=== PATIENT | female | born 1940 | race Two or more races ===

== ENCOUNTER 2024-05-03 18:11 | Emergency (ER) | payer OTHER ==
[~2024-05-03] VITALS: Ht 160 cm; Wt 59.0 kg
[2024-05-03] MEDS ORDERED: COZAAR25 MG (18:23)
[2024-05-03] MEDS ORDERED: METFORMIN HCL500 MG (18:23)
[2024-05-03] MEDS ORDERED: FAMOTIDINE/PF 20 MG in 0.9 % SODIUM CHLORIDE 8 ML IV PUSH STA (18:24)
[2024-05-03] MEDS ORDERED: ONDANSETRON HCL 2 MG/ML VIAL IV ONE (18:30)
[2024-05-03] MEDS ORDERED: 0.9 % SODIUM CHLORIDE 1,000 ML IV SCH (18:30)
[2024-05-03] MEDS ORDERED: ENALAPRILAT DIHYDRATE 1.25 MG/ML VIAL IV ONE ×2 (18:30→19:18)
[2024-05-03] MEDS ORDERED: MECLIZINE HCL 25 MG TABLET PO ONE ×2 (18:45→19:18)
[2024-05-03] MEDS ORDERED: ONDANSETRON HCL 2 MG/ML VIAL ONE (19:18)
[2024-05-03] MEDS ORDERED: FAMOTIDINE/PF 20 MG/2 ML VIAL ONE (19:18)
[2024-05-03 20:12] LABS: HEMATOCRIT 42.3 % (36.0-45.00); MEAN CELL VOLUME 84.5 fL (80.00-100.00); MEAN CORPUSCULAR HEMOGLOBIN 27.9 pg (27.00-32.0); PLATELET COUNT 348 K/uL (150-450); RED CELL DISTRIBUTION WIDTH 14.9 % (11.5-14.5)
[2024-05-03 20:46] LABS: ALBUMIN 4.1 gm/dL (3.4-5.0); BILIRUBIN TOTAL 0.46 mg/dL (0.3-1.2); BILIRUBIN,CONJUGATED 0.13 mg/dL (0.0-0.2); BILIRUBIN,UNCONJUGATED 0.33 mg/dL (0.0-0.6); CALCIUM 9.3 mg/dL (8.5-10.1); CREATININE SERUM 0.72 mg/dL (0.55-1.02); GFR 76.98; GLOBULINA 3.8 G/DL (2.4-3.5); POTASSIUM 3.64 mEq/L (3.5-5.1); TOTAL PROTEIN 7.9 gm/dL (6.4-8.2)
[2024-05-03] MEDS ORDERED: MANNITOL 0.2 GM/ML (250ML) PIGGYBAG IV ONE (22:30)
== END 2024-05-04 03:14 | disposition designated cancer center or children's hospital (05) ==
LOC: ER 18:11
PROVIDERS: General Practice
DX: R42 Dizziness and giddiness (principal); R11.2 Nausea with vomiting, unspecified; I61.9 Nontraumatic intracerebral hemorrhage, unspecified; R11.10 Vomiting, unspecified; Z20.822 Contact with and (suspected) exposure to COVID-19; I10 Essential (primary) hypertension; E11.9 Type 2 diabetes mellitus without complications; Z79.84 Long term (current) use of oral hypoglycemic drugs
CPT/HCPCS: 36415; 51702; 70450; 93041; 96365; 96366; 99285; J2405; J3490 ×3; J7030

== ENCOUNTER 2024-07-25 17:11 | Inpatient (IN) | payer OTHER ==
[~2024-07-25] VITALS: Ht 157.5 cm; Wt 54.4 kg
[~2024-07-25 17:11] MED LIST: COZAAR25 MG PO; METFORMIN HCL500 MG PO
[2024-07-25] MEDS ORDERED: TRAZODONE HCL150 MG PO (17:40)
[2024-07-25] MEDS ORDERED: SINVALTA PO (17:40)
[2024-07-25] MEDS ORDERED: TOPROL XL50 M1 PO (17:40)
[2024-07-25] MEDS ORDERED: DULOXETINE HCL40 MG PO (17:41)
[2024-07-25] MEDS ORDERED: 0.9 % SODIUM CHLORIDE 1,000 ML IV SCH (18:45)
[2024-07-25] MEDS ORDERED: FAMOTIDINE/PF 20 MG in 0.9 % SODIUM CHLORIDE 8 ML IV PUSH STA (18:45)
[2024-07-25] MEDS ORDERED: ONDANSETRON HCL 2 MG/ML VIAL IV ONE (18:45)
[2024-07-25] MEDS ORDERED: ONDANSETRON HCL 2 MG/ML VIAL ONE (18:54)
[2024-07-25] MEDS ORDERED: FAMOTIDINE/PF 20 MG/2 ML VIAL ONE (18:54)
[2024-07-25 20:56] LABS: BASO % 0.1 % (0.1-1.2); HEMATOCRIT 45.4 % (34.1-44.9); HEMOGLOBIN 14.5 g/dL (11.2-15.7); LYMPH # 0.61 (1.18-3.74); LYMPH % 3.3 % (19.3-53.1); MEAN CORPUSCULAR HEMOGLOBIN 26.8 pg (25.6-32.2); MONO # 0.74 (0.24-0.82); NEUT # 16.94 (1.56-6.13); PLATELET COUNT 391 K/uL (163-369); RED BLOOD COUNT 5.41 M/uL (3.93-5.22); RED CELL DISTRIBUTION WIDTH 15.2 % (11.6-14.4)
[2024-07-25 21:20] LABS: INR 1.17; PARTIAL THROMBOPLASTIN TIME 26.2 SECONDS (22.0-34.0); PROTHROMBIN TIME 12.6 SECONDS (9.0-11.5)
[2024-07-25 21:25] LABS: ALBUMIN 3.6 gm/dL (3.4-5.0); BILIRUBIN TOTAL 0.54 mg/dL (0.3-1.2); CALCIUM 9.5 mg/dL (8.5-10.1); CREATININE SERUM 1.37 mg/dL (0.55-1.02); GFR 36.64; POTASSIUM 3.83 mEq/L (3.5-5.1); TOTAL PROTEIN 7.6 gm/dL (6.4-8.2)
[2024-07-25 22:13] LABS: PH,URINE 5.5 (5.0-8.0); URINE APPEARANCE Clear; URINE BILIRRUBIN Negative (NEGATIVE); URINE BLOOD Negative; URINE COLOR Yellow; URINE KETONE 15 (NEGATIVE); URINE LEUKOCYTE Negative; URINE NITRATE Negative
[2024-07-25 22:16] LABS: URINE BACTERIA 56.2 uL (0.0-1933); URINE CAST 4.56 uL (0.0-1.40); URINE EPITHELIAL CELLS 2.5 uL (0.0-38.8); URINE RBC 26.2 uL (0.0-20.8); URINE WBC 6.4 uL (0.0-23.2)
[2024-07-25 22:24] LABS: URINE GLUCOSE 500 MG/DL (NEGATIVE); URINE PROTEIN 300 (NEGATIVE)
[2024-07-25] MEDS ORDERED: NITROGLYCERIN IN 5 % DEXTROSE 250 ML IV SCH (22:30)
[2024-07-25] MEDS ORDERED: METOPROLOL SUCCINATE 50 MG TAB.SR.24H PO ONE (22:30)
[2024-07-25] MEDS ORDERED: NITROGLYCERIN IN 5 % DEXTROSE 50 MG/250 ML BOTTLE IV ONE (22:31)
[2024-07-25] MEDS ORDERED: INSULIN LISPRO 1,000 UNIT/10 ML UNITS SUBCUTANEO PRN (23:30)
[2024-07-25] MEDS ORDERED: DEXTROSE 50 % IN WATER 0.5 G/ML DISP.SYRIN IV PRN (23:30)
[2024-07-26] MEDS ORDERED: PIPERACILLIN/TAZOBACTAM SODIUM 2.25 GM in DEXTROSE 5 % IN WATER 50 ML IV SCH
[2024-07-26 02:42] LABS: INFLUENZA A AG NEGATIVE (NEGATIVE); INFLUENZA B AG NEGATIVE (NEGATIVE)
[2024-07-26 02:43] LABS: COVID-19 AG NEGATIVE (NEGATIVE)
[2024-07-26 03:47] LABS: ABG PH 7.394 (7.35-7.45); ABG PO2 84.4 mmHg (80-100); ABG pCO2 26.3 mmHg (35-45); BASE EXCESS -7.3 mmol/l
[2024-07-26 03:48] LABS: BICARBONATE 15.7 mmol/l (23-25); Tco2 16.5 mmol/l; allen test SATISFACTORY; mode NASAL CANNULA; o2 32 %; puncture site RADIAL LEFT
[2024-07-26 17:35] LABS: BASO % 0.1 % (0.1-1.2); HEMATOCRIT 38.6 % (34.1-44.9); HEMOGLOBIN 12.6 g/dL (11.2-15.7); LYMPH # 1.25 (1.18-3.74); MONO # 0.99 (0.24-0.82); MONO % 5.6 % (4.7-12.5); NEUT % 86.8 % (34.0-71.1); PLATELET COUNT 291 K/uL (163-369); RED BLOOD COUNT 4.67 M/uL (3.93-5.22); RED CELL DISTRIBUTION WIDTH 15.6 % (11.6-14.4)
[2024-07-26] MEDS ORDERED: IPRATROPIUM BROMIDE 0.5 MG/2.5 ML AMPUL.NEB IH SCH (17:36)
[2024-07-26] MEDS ORDERED: MEROPENEM 500 MG/VIAL VIAL IV SCH (17:42)
[2024-07-26] MEDS ORDERED: FAMOTIDINE/PF 20 MG in 0.9 % SODIUM CHLORIDE 8 ML IV PUSH SCH (17:43)
[2024-07-26] MEDS ORDERED: DEXAMETHASONE SODIUM PHOSPHATE 4 MG/ML VIAL IV ONE (17:45)
[2024-07-26] MEDS ORDERED: ACETAMINOPHEN 500 MG GEL..CAP PO PRN (17:45)
[2024-07-26] MEDS ORDERED: 0.9 % SODIUM CHLORIDE 1,000 ML IV ONE (17:45)
[2024-07-26] MEDS ORDERED: ONDANSETRON HCL 4 MG in 0.9 % SODIUM CHLORIDE 50 ML IV PRN (17:45)
[2024-07-26] MEDS ORDERED: ATORVASTATIN CALCIUM 40 MG TABLET PO SCH (17:46)
[2024-07-26] MEDS ORDERED: DEXTROSE 50 % IN WATER 0.5 G/ML DISP.SYRIN IV PRN (18:00)
[2024-07-26] MEDS ORDERED: INSULIN LISPRO 1,000 UNIT/10 ML UNITS SUBCUTANEO PRN (18:00)
[2024-07-26 18:05] LABS: ALBUMIN 3.1 gm/dL (3.4-5.0); BILIRUBIN TOTAL 0.69 mg/dL (0.3-1.2); CALCIUM 8.6 mg/dL (8.5-10.1); CREATININE SERUM 1.39 mg/dL (0.55-1.02); GFR 36.03; GLOBULINA 3.1 G/DL (2.4-3.5); POTASSIUM 4.93 mEq/L (3.5-5.1); TOTAL PROTEIN 6.2 gm/dL (6.4-8.2)
[2024-07-26] MEDS ORDERED: FAMOTIDINE/PF 20 MG/2 ML VIAL ONE (18:23)
[2024-07-26] MEDS ORDERED: DEXAMETHASONE SODIUM PHOSPHATE 4 MG/ML VIAL ONE (18:23)
[2024-07-26 19:00] VITALS: BP 119/81; O2SAT 92
[2024-07-26] MEDS ORDERED: METOPROLOL SUCCINATE 25 MG TAB.SR.24H PO ONE (19:00)
[2024-07-26 20:00] VITALS: BP 128/79; O2SAT 91
[2024-07-26 21:00] VITALS: BP 127/72; O2SAT 92
[2024-07-26 22:11] VITALS: BP 116/76; O2SAT 95
[2024-07-26] MEDS ORDERED: 0.9 % SODIUM CHLORIDE 500 ML IV ONE (22:15)
[2024-07-26 23:00] VITALS: BP 110/79; O2SAT 94
[2024-07-27] VITALS (21 sets, daily range): BP systolic 99–137; BP diastolic 66–87; O2SAT 92–110
[2024-07-27 06:47] LABS: CHOL HDL RATIO 3.2 (0-5.0); TSH 1.27 uIU/mL (0.358-3.74)
[2024-07-27] MEDS ORDERED: IPRATROPIUM BROMIDE 0.5 MG/2.5 ML AMPUL.NEB IH ONE (07:59)
[2024-07-27] MEDS ORDERED: METOPROLOL SUCCINATE 25 MG TAB.SR.24H PO SCH (09:00)
[2024-07-27] MEDS ORDERED: DOXYCYCLINE HYCLATE 100MG IV SCH (09:19)
[2024-07-27] MEDS ORDERED: ASPIRIN 325 MG TABLET PO SCH (12:25)
[2024-07-27] MEDS ORDERED: LOSARTAN POTASSIUM 50 MG TABLET PO SCH (12:25)
[2024-07-27] MEDS ORDERED: FUROsemide 20 MG/2 ML VIAL IV SCH (12:26)
[2024-07-27] MEDS ORDERED: ENOXAPARIN SODIUM 60 MG/0.6 ML SYRINGE SUBCUTANEO SCH (12:26)
[2024-07-27] MEDS ORDERED: LevETIRAcetam 500 MG/5 ML VIAL IV STA (18:26)
[2024-07-27] MEDS ORDERED: LevETIRAcetam 500 MG/5 ML VIAL IV ONE (18:30)
[2024-07-27] MEDS ORDERED: LORazepam 2 MG/ML VIAL IV PUSH ONE (18:30)
[2024-07-27] MEDS ORDERED: DOXYCYCLINE HYCLATE 100MG IV ONE (20:54)
[2024-07-28] VITALS (8 sets, daily range): BP systolic 93–116; BP diastolic 61–75; O2SAT 96–100
[2024-07-28] MEDS ORDERED: DOXYCYCLINE HYCLATE 100MG IV ONE ×2 (07:30→19:31)
[2024-07-28] MEDS ORDERED: LevETIRAcetam 500 MG/5 ML VIAL IV SCH ×2 (09:00→17:00)
[2024-07-28] MEDS ORDERED: LevETIRAcetam 500 MG/5 ML VIAL IV NR (12:00)
[2024-07-29] VITALS (7 sets, daily range): BP systolic 102–120; BP diastolic 67–79; O2SAT 97–100
[2024-07-29] MEDS ORDERED: DOXYCYCLINE HYCLATE 100MG IV ONE ×2 (07:52→19:48)
[2024-07-29 08:36] LABS: BASO % 0.1 % (0.1-1.2); EOS # 0.01 (0.04-0.54); EOS % 0.1 % (0.7-7.0); HEMATOCRIT 35.2 % (34.1-44.9); HEMOGLOBIN 11.3 g/dL (11.2-15.7); LYMPH # 1.13 (1.18-3.74); MEAN CORPUSCULAR HEMOGLOBIN 26.8 pg (25.6-32.2); MONO # 0.84 (0.24-0.82); MONO % 8.2 % (4.7-12.5); NEUT # 8.26 (1.56-6.13); NEUT % 80.2 % (34.0-71.1); PLATELET COUNT 234 K/uL (163-369); RED BLOOD COUNT 4.21 M/uL (3.93-5.22); RED CELL DISTRIBUTION WIDTH 16.1 % (11.6-14.4)
[2024-07-29 08:56] LABS: ALBUMIN 2.7 gm/dL (3.4-5.0); BILIRUBIN TOTAL 0.79 mg/dL (0.3-1.2); CREATININE SERUM 0.64 mg/dL (0.55-1.02); GFR 88.19; GLOBULINA 2.8 G/DL (2.4-3.5); POTASSIUM 3.31 mEq/L (3.5-5.1); TOTAL PROTEIN 5.5 gm/dL (6.4-8.2)
[2024-07-29] MEDS ORDERED: CEFTRIAXONE SODIUM 2,000 MG in 0.9 % SODIUM CHLORIDE 100 ML IV SCH (09:00)
[2024-07-29] MEDS ORDERED: ENALAPRILAT DIHYDRATE 1.25 MG/ML VIAL IV PRN (09:45)
[2024-07-29] MEDS ORDERED: LevETIRAcetam 500 MG/5 ML VIAL IV SCH (17:00)
[2024-07-30] VITALS (8 sets, daily range): BP systolic 84–110; BP diastolic 54–72; O2SAT 96–99
[2024-07-30] MEDS ORDERED: DOXYCYCLINE HYCLATE 100MG IV ONE ×2 (08:06→19:44)
[2024-07-30 15:59] LABS: POTASSIUM 3.74 mEq/L (3.5-5.1)
[2024-07-30 16:08] LABS: CALCIUM 8.7 mg/dL (8.5-10.1); CREATININE SERUM 0.63 mg/dL (0.55-1.02); GFR 89.81
[2024-07-30] MEDS ORDERED: LevETIRAcetam 5 MG/1 ML REDILUIDO IV SCH (17:00)
[2024-07-30] MEDS ORDERED: DEXTROSE 50 % IN WATER 0.5 G/ML VIAL IV PRN (23:00)
[2024-07-31] VITALS (7 sets, daily range): BP systolic 90–122; BP diastolic 47–74; O2SAT 88–100
[2024-07-31] MEDS ORDERED: DOXYCYCLINE HYCLATE 100MG IV ONE ×2 (08:10→20:37)
[2024-07-31 15:59] LABS: CALCIUM 8.9 mg/dL (8.5-10.1); CREATININE SERUM 0.51 mg/dL (0.55-1.02); GFR 114.61; POTASSIUM 3.06 mEq/L (3.5-5.1)
[2024-08-01] VITALS (10 sets, daily range): BP systolic 85–107; BP diastolic 48–60; O2SAT 90–100
[2024-08-01] MEDS ORDERED: DOXYCYCLINE HYCLATE 100MG IV ONE ×2 (08:49→20:11)
[2024-08-01] MEDS ORDERED: CEFTRIAXONE SODIUM 2,000 MG VIAL ONE ×2 (08:50→12:55)
[2024-08-01] MEDS ORDERED: POTASSIUM CHLORIDE IN WATER 100 ML IV SCH (16:00)
[2024-08-02] VITALS (9 sets, daily range): BP systolic 87–100; BP diastolic 50–63; O2SAT 95–100
[2024-08-02 07:42] LABS: CALCIUM 9.3 mg/dL (8.5-10.1); CREATININE SERUM 0.49 mg/dL (0.55-1.02); GFR 120.03
[2024-08-02] MEDS ORDERED: DEXTROSE 5 % IN WATER 1,000 ML IV SCH (07:45)
[2024-08-02] MEDS ORDERED: CEFTRIAXONE SODIUM 2,000 MG VIAL IV SCH (17:00)
[2024-08-02] MEDS ORDERED: DOXYCYCLINE HYCLATE 100MG IV ONE (21:16)
[2024-08-03] VITALS (10 sets, daily range): BP systolic 103–119; BP diastolic 58–60; O2SAT 89–100
[2024-08-03] MEDS ORDERED: POTASSIUM CHLORIDE 20MEQ/100ML H2O PB IV ONE (06:34)
[2024-08-03 10:35] LABS: BASO % 0.2 % (0.1-1.2); EOS # 0.16 (0.04-0.54); EOS % 1.8 % (0.7-7.0); LYMPH # 1.21 (1.18-3.74); LYMPH % 13.5 % (19.3-53.1); MEAN CORPUSCULAR HEMOGLOBIN 26.8 pg (25.6-32.2); MONO # 0.78 (0.24-0.82); MONO % 8.7 % (4.7-12.5); NEUT # 6.77 (1.56-6.13); NEUT % 75.4 % (34.0-71.1); PLATELET COUNT 230 K/uL (163-369); RED BLOOD COUNT 4.11 M/uL (3.93-5.22); RED CELL DISTRIBUTION WIDTH 15.8 % (11.6-14.4)
[2024-08-03 11:03] LABS: CALCIUM 9.6 mg/dL (8.5-10.1); CREATININE SERUM 0.48 mg/dL (0.55-1.02); GFR 122.92; POTASSIUM 4.05 mEq/L (3.5-5.1)
[2024-08-04] VITALS (7 sets, daily range): BP systolic 91–99; BP diastolic 56–59; O2SAT 94–98
[2024-08-04 08:47] LABS: CALCIUM 9.3 mg/dL (8.5-10.1); CREATININE SERUM 0.53 mg/dL (0.55-1.02); GFR 109.64; POTASSIUM 4.13 mEq/L (3.5-5.1)
[2024-08-04] MEDS ORDERED: SODIUM CHLORIDE 0.45 % 1,000 ML IV SCH (12:00)
[2024-08-05] VITALS (7 sets, daily range): BP systolic 105–111; BP diastolic 56–61; O2SAT 91–100
[2024-08-05 08:03] LABS: CALCIUM 9.3 mg/dL (8.5-10.1); CREATININE SERUM 0.48 mg/dL (0.55-1.02); GFR 122.92; POTASSIUM 4.14 mEq/L (3.5-5.1)
[2024-08-06] VITALS (9 sets, daily range): BP systolic 99–108; BP diastolic 54–63; O2SAT 94–100
[2024-08-06 12:49] LABS: CALCIUM 8.9 mg/dL (8.5-10.1); CREATININE SERUM 0.36 mg/dL (0.55-1.02); GFR 171.31; POTASSIUM 4.52 mEq/L (3.5-5.1)
[2024-08-06 15:28] LABS: BASO % 0.2 % (0.1-1.2); HEMOGLOBIN 9.6 g/dL (11.2-15.7); LYMPH # 1.17 (1.18-3.74); LYMPH % 11.6 % (19.3-53.1); MEAN CORPUSCULAR HEMOGLOBIN 27.1 pg (25.6-32.2); MONO # 0.79 (0.24-0.82); MONO % 7.9 % (4.7-12.5); NEUT # 7.92 (1.56-6.13); NEUT % 78.7 % (34.0-71.1); PLATELET COUNT 246 K/uL (163-369); RED BLOOD COUNT 3.54 M/uL (3.93-5.22); RED CELL DISTRIBUTION WIDTH 15.2 % (11.6-14.4)
[2024-08-07] VITALS (9 sets, daily range): BP systolic 85–90; BP diastolic 50–54; O2SAT 92–100
[2024-08-07 06:23] LABS: BASO % 0.2 % (0.1-1.2); EOS % 1.1 % (0.7-7.0); HEMATOCRIT 27.3 % (34.1-44.9); LYMPH # 0.89 (1.18-3.74); LYMPH % 9.7 % (19.3-53.1); MEAN CORPUSCULAR HEMOGLOBIN 27.4 pg (25.6-32.2); MONO # 0.71 (0.24-0.82); MONO % 7.7 % (4.7-12.5); NEUT # 7.42 (1.56-6.13); NEUT % 80.9 % (34.0-71.1); PLATELET COUNT 249 K/uL (163-369); RED BLOOD COUNT 3.18 M/uL (3.93-5.22); RED CELL DISTRIBUTION WIDTH 15.3 % (11.6-14.4)
[2024-08-07 06:39] LABS: INR 1.12; PROTHROMBIN TIME 12.1 SECONDS (9.0-11.5)
[2024-08-07 06:51] LABS: HEMOGLOBIN 8.7 g/dL (11.2-15.7)
[2024-08-08] VITALS (9 sets, daily range): BP systolic 109–121; BP diastolic 67–91; O2SAT 95–99
[2024-08-08 07:56] LABS: BASO % 0.5 % (0.1-1.2); EOS # 0.09 (0.04-0.54); HEMATOCRIT 30.7 % (34.1-44.9); HEMOGLOBIN 9.8 g/dL (11.2-15.7); LYMPH % 12.5 % (19.3-53.1); MONO # 0.81 (0.24-0.82); MONO % 9.2 % (4.7-12.5); NEUT # 6.69 (1.56-6.13); NEUT % 76.2 % (34.0-71.1); PLATELET COUNT 270 K/uL (163-369); RED BLOOD COUNT 3.63 M/uL (3.93-5.22); RED CELL DISTRIBUTION WIDTH 15.1 % (11.6-14.4)
[2024-08-09] VITALS (8 sets, daily range): BP systolic 116–118; BP diastolic 62–68; O2SAT 89–100
[2024-08-10 01:00] VITALS: O2SAT 100
[2024-08-10 02:22] VITALS: BP 104/61; O2SAT 100
[2024-08-10 05:00] VITALS: O2SAT 92
[2024-08-10 08:02] VITALS: BP 122/70; O2SAT 96
[2024-08-10 09:36] VITALS: O2SAT 96
[2024-08-10 16:00] VITALS: BP 114/64; O2SAT 95
[2024-08-11] VITALS (9 sets, daily range): BP systolic 98–124; BP diastolic 61–67; O2SAT 94–100
[2024-08-12] VITALS (9 sets, daily range): BP systolic 108–122; BP diastolic 54–70; O2SAT 95–100
[2024-08-13 00:19] VITALS: O2SAT 100
[2024-08-13 01:31] VITALS: BP 97/52; O2SAT 100
[2024-08-13 06:18] VITALS: O2SAT 99
[2024-08-13 08:59] VITALS: BP 107/62; O2SAT 96
[2024-08-13 10:41] VITALS: O2SAT 98
== END 2024-08-13 13:59 | disposition home or self-care (01) | DRG 193 ==
LOC: ER 17:11 → MEDI 07-26 23:38 → ICU-2 07-26 23:38 → MEDI 07-27 12:50
PROVIDERS: General Practice; Internal Medicine; Student in an Organized Health Care Education/Training Program; Surgery; ADMIT Internal Medicine; ATTEND Internal Medicine
PROC: BW28ZZZ Computerized Tomography (CT Scan) of Head (ICD-10-PCS; 2024-07-25)
PROC: BW21ZZZ Computerized Tomography (CT Scan) of Abdomen and Pelvis (ICD-10-PCS; 2024-07-25)
PROC: BW38ZZZ Magnetic Resonance Imaging (MRI) of Head (ICD-10-PCS; 2024-07-25)
PROC: BW24ZZZ Computerized Tomography (CT Scan) of Chest and Abdomen (ICD-10-PCS; 2024-07-25)
PROC: B345ZZZ Ultrasonography of Bilateral Common Carotid Arteries (ICD-10-PCS; 2024-07-26)
PROC: B24BYZZ Ultrasonography of Heart with Aorta using Other Contrast (ICD-10-PCS; 2024-07-26)
PROC: B020ZZZ Computerized Tomography (CT Scan) of Brain (ICD-10-PCS; 2024-07-27)
PROC: 4A12X4Z Monitoring of Cardiac Electrical Activity, External Approach (ICD-10-PCS; 2024-07-27)
PROC: BW38ZZZ Magnetic Resonance Imaging (MRI) of Head (ICD-10-PCS; 2024-07-31)
PROC: 30233N1 Transfusion of Nonautologous Red Blood Cells into Peripheral Vein, Percutaneous Approach (ICD-10-PCS; 2024-08-07)
PROC: 3E0G76Z Introduction of Nutritional Substance into Upper GI, Via Natural or Artificial Opening (ICD-10-PCS; 2024-08-08)
PROC: 0DH63UZ Insertion of Feeding Device into Stomach, Percutaneous Approach (ICD-10-PCS; principal; 2024-08-08 12:45)
DX: J18.9 Pneumonia, unspecified organism (principal); A41.9 Sepsis, unspecified organism; I21.A1 Myocardial infarction type 2; I61.9 Nontraumatic intracerebral hemorrhage, unspecified; N17.9 Acute kidney failure, unspecified; J90 Pleural effusion, not elsewhere classified; I62.9 Nontraumatic intracranial hemorrhage, unspecified; I50.9 Heart failure, unspecified; R09.02 Hypoxemia; R13.10 Dysphagia, unspecified
CPT/HCPCS: 70544; 70552